=== PATIENT | male | born 2000 | race Two or more races ===

== ENCOUNTER 2021-12-21 18:27 | Emergency (ER) | payer OTHER ==
[~2021-12-21] VITALS: Ht 172.7 cm; Wt 72.6 kg
--- NOTE | 2021-12-21 18:51 | NUR ---
Patient was seen by Dr Ayala
--- NOTE | 2021-12-21 19:50 | NUR ---
Pt had xray, patiently waiting on us and results.
--- NOTE | 2021-12-21 20:30 | NUR ---
KATHRINE applied brace on pt himself. Pt had good cms, cap refil <3sec before and after administration.
--- NOTE | 2021-12-21 20:40 | NUR ---
US performed, awaiting results from radiology
--- NOTE | 2021-12-21 20:45 | NUR ---
Pt given DC instructions and confirmed understanding. Signed out and dced home. VSS, no ssx of distress present.
--- NOTE | 2021-12-21 21:40 | NUR ---
diagnositic resulted negative, EDMD ordered Knee brace and DC home with aftercare
[2021-12-21 23:23] VITALS: BP 130/81
== END 2021-12-21 20:45 | disposition home or self-care (01) ==
LOC: ER 18:29
DX: M25.561 Pain in right knee (principal); M17.11 Unilateral primary osteoarthritis, right knee; Z98.890 Other specified postprocedural states
CPT/HCPCS: A4663